=== PATIENT | male | born 1975 | race Caucasian/White ===

== ENCOUNTER 2018-12-15 23:46 | Inpatient (IN) | payer SELFPAY ==
[2018-12-16] MEDS ORDERED: Ondansetron ODT 4 MG TAB PO PRN (03:47)
[2018-12-16] MEDS: Ondansetron PF 4 MG/2 ML Vial IVP PRN ×2 (04:19→17:19)
[2018-12-16] MEDS: Acetaminophen 325 MG TAB PO PRN (04:19)
[2018-12-16] MEDS: Sodium Chloride 0.9% 1,000 ML IV SCH ×3 (04:20→20:49)
--- NOTE | 2018-12-16 04:31 | HP ---
PRIMARY CARE PHYSICIAN: Dr. Velez. CHIEF COMPLAINT: Nausea and vomiting all day long. HISTORY OF PRESENT ILLNESS: Mr. Hutchinson is a 43-year-old gentleman who has a history of anxiety and depression, who says that today he started vomiting pretty much all day long and cannot keep anything down. He says that now he has noticed that he is even throwing up some blood and having some bloody diarrhea as well. He says a few years ago he had a similar episode in which he had poisoning by E coli. He began to become weak as well and he came to the ER where he was found to be in acute renal failure and also was noted to have an elevated white blood cell count and is being admitted for further evaluation. The patient denies any fevers, but has had some chills off and on. He does not have any sick contacts and says that he did eat a medium rare steak yesterday and then also had some red hot dogs what he calls red skin hot dogs, which had been in the freezer, had been cooked, then refrozen, and then eaten again and he also took some Motrin gelcaps a total of 800 mg a few days ago. REVIEW OF SYSTEMS: CONSTITUTIONAL: He has had subjective chills, but no fevers. No night sweats. No weight loss. HEENT: No headaches, no dizziness, no visual changes, no sore throat or rhinorrhea. NECK: No neck pain. No adenopathy. PULMONARY: No hemoptysis. No cough. No wheezing. CARDIOVASCULAR: He denies any chest pain. No shortness of breath. No PND. No orthopnea. GASTROINTESTINAL: As the History of Present Illness with the addition of some cramping or twisting abdominal pain which is fairly constant. GENITOURINARY: No urinary frequency or hematuria. No hesitancy. NEUROLOGIC: No focal weakness or numbness. No seizures. PSYCHIATRIC: He does have some depression. He denies any suicidal ideation. He denies any homicidal ideation. SKIN AND INTEGUMENT: No skin changes. No rash. PAST MEDICAL HISTORY: Again, anxiety and depression as well as hypogonadism. PAST SURGICAL HISTORY: He had surgery on the right 5th digit. ALLERGIES: NO KNOWN DRUG ALLERGIES. SOCIAL HISTORY: He is , has 2 children. He is a nonsmoker. He occasionally drinks about 4 beers every few days. FAMILY HISTORY: Aunt had depression. MEDICATIONS: Include; 1. Testosterone every 10 days as well as Effexor and Wellbutrin. Effexor is 150 mg daily. 2. He also takes Adderall 60 mg in the morning. PHYSICAL EXAMINATION: GENERAL: He is alert and oriented. He appears to be in no acute distress. He is well developed and well nourished. VITAL SIGNS: Blood pressure was 102/57, heart rate 64, respiratory rate of 20, and temperature is 97.9. HEENT: Pupils are equal, round, and reactive to light. Extraocular muscles are intact. His sclerae are anicteric. Throat; no erythema, no exudates. NECK: No adenopathy, no bruits. LUNGS: Clear to auscultation. There is no wheezing, no rales, no rhonchi. CARDIOVASCULAR: He has a normal S1, S2. There is no S3 or S4. No murmurs, clicks, or rubs. ABDOMEN: Obese. It is slightly distended, tympanic to percussion. There is some diffuse tenderness. There is no rebound, no guarding, no organomegaly. EXTREMITIES: There is no calf tenderness, no joint effusions. NEUROLOGIC: Cranial nerves 2 through 12 are intact. SKIN AND INTEGUMENT: There is no skin changes, no rash. LABORATORY RESULTS: His white blood cell count 16, hemoglobin 18.1, hematocrit is 54.4, and platelet count is 291. Sodium 141, potassium 4.6, chloride is 104, CO2 is not reported, BUN is 38, creatinine 3.84, glucose is 147, calcium was elevated at 11.9. CT scan of the abdomen and pelvis is currently pending. ASSESSMENT: This is a pleasant 43-year-old gentleman who is being admitted with intractable nausea and vomiting and now has developed some bright red blood per rectum as well. He also has acute kidney injury. 1. For the acute kidney injury, I suspect this is volume mediated, likely due to prerenal azotemia. He will be placed on IV fluids and we will monitor his trend, likely get a renal ultrasound as well. 2. Bloody diarrhea. We will need to check stool studies with the addition of the Escherichia coli toxigenic strains and Shigella. 3. Leukocytosis and vomiting. We will place him on Rocephin and Flagyl. 4. Depression. We will continue his home medications for depression. We will hold off on any deep venous thrombosis prophylaxis given the active bleeding. Job ID: [id number]
[2018-12-16] MEDS ORDERED: cefTRIAXone\\ROCEPHIN 1 GM in Sodium Chloride 0.9% 100 ML IVPB SCH (05:00)
[2018-12-16 05:11] VITALS: BMI 27.3
[2018-12-16] MEDS: metroNIDAZOLE 500 MG in Premix Bag 1 BAG IVPB SCH ×4 (05:36→23:48)
--- NOTE | 2018-12-16 08:40 | CT ---
PRELIMINARY REPORT/[facility]/EMERGENCY AFTER HOURS PROCEDURE: EXAM: CT Abdomen and Pelvis Without Contrast EXAM DATE/TIME: 12/16/2018 1:34 AM CLINICAL HISTORY: 43 years old, male; renal failure. Initially presented to ED for n/v/d after eating sausages earlier today. Went to ED and diagnosed with acute renal failure, unlikely related to sudden onset of n/vd. P T reports he felt like he needed to have bm upon arrival to ED, was in restroom but about 20 minutes, unable to have bm but reports rectal bleeding. Reports abdominal pain, cramping and dizziness. Pt's creatinine was >3 today, previous in August was 1 TECHNIQUE: Imaging protocol: Computed tomography of the abdomen and pelvis without contrast. COMPARISON: No relevant prior studies available. FINDINGS: Lungs: Evidence of old granulomatous disease. No acute infiltrate in either lung base. Liver: Normal. No mass. Gallbladder and bile ducts: Normal. No calcified stones. No ductal dilation. Pancreas: Normal. No ductal dilation. Spleen: Normal. No splenomegaly. Adrenals: Normal. No mass. Kidneys and ureters: 12 mm posteromedial left renal cortical cyst. Small cyst posteromedial right christiana al cortex. No hydronephrosis. Stomach and bowel: The colon is decompressed. The left colon likely exhibits wall thickening with min imal pericolonic stranding in the descending colon region - these findings indicate a colitis. Mild wall thickening of the terminal ileum and distal ileum indicating an associated enteritis. A few scat tered colon diverticuli without evidence of diverticulitis. Appendix: Normal appendix. Intraperitoneal space: Normal. No free air. No significant fluid collection. Vasculature: Coronary artery calcification. Normal-variant duplicated IVC. Lymph nodes: Unremarkable. No enlarged lymph nodes. Bladder: Unremarkable as visualized. Reproductive: Unremarkable as visualized. Bones/joints: Spinal degenerative changes. Soft tissues: Unremarkable. IMPRESSION: 1. The colon is decompressed. The left colon likely exhibits wall thickening with minimal pericolonic stranding in the descending colon region - these findings indicate a colitis. 2. Mild wall thickening of the terminal ileum and distal ileum indicating an associated enteritis. 3. A few scattered colon diverticuli without evidence of diverticulitis. 4. No hydronephrosis. Thank you for allowing us to participate in the care of your patient. Dictated and Authenticated by: Jonathan Loving MD 12/16/2018 1:57 AM Central Time ([place] & [place]) FINAL REPORT ABDOMEN AND PELVIC CT SCAN WITHOUT IV CONTRAST: EMERGENT AFTER HOURS EXAM TIME: 0135 hours. DATE: 12/16/2018. A 1.2 cm left renal cortical cyst and small cyst in the right renal cortex. There is some subtle wal l thickening of the left colon with some minimal pericolonic fat stranding, but the colon is decompre ssed making this evaluation difficult. There are a few scattered colonic diverticulosis changes but without acute diverticulitis. Minimal potential wall thickening in the distal ileum. Possible mild enterocolitis. No other significant acute process. POS: EMIL
[2018-12-16] MEDS ORDERED: Dextroamphetamine/Amphetamine [Adderall 20 Mg Tablet] PO SCH (09:00)
[2018-12-16] MEDS: Venlafaxine HCl XR 150 MG CAP PO SCH (10:00)
[2018-12-16] MEDS: Bupropion 150 MG XL TAB PO SCH (10:00)
[2018-12-16] MEDS ORDERED: Promethazine HCl 25 MG/ML VIAL IM/IV PRN (11:15)
--- NOTE | 2018-12-16 11:17 | PDOC.HOSPP ---
- Subjective Encounter Date: 12/16/18 Subjective: continues to have diarrhea, nausea and vomiting. - Objective Vital Signs & Weight: Vital Signs (12 hours) Temp Pulse Resp BP Pulse Ox 12/16/18 03:50 97.6 F 59 L 18 117/69 100 Weight Weight 190 lb 2 oz Hospitalist ROS - Medication Medications: Active Medications Generic Name Dose Route Start Last Admin Trade Name Freq PRN Reason Stop Dose Admin Acetaminophen 650 mg 12/16/18 03:47 12/16/18 04:19 Tylenol PO 650 mg Q4H PRN Administration Headache/Fever/Mild Pain (1-3) Bupropion HCl 150 mg 12/16/18 09:00 12/16/18 10:00 Wellbutrin Xl PO 150 mg QAM BRIAN Administration Metronidazole 500 mg/ Device 100 mls @ 100 mls/hr 12/16/18 06:00 12/16/18 05: 36 IVPB 100 mls Q6HR BRIAN Administration Sodium Chloride 1,000 mls @ 150 mls/hr 12/16/18 03:47 12/16/18 10:16 Normal Saline 0.9% IV 1,000 mls .Q6H40M BRIAN Administration Ondansetron HCl 4 mg 12/16/18 03:47 12/16/18 04:19 Zofran IVP 4 mg Q6H PRN Administration Nausea/Vomiting Testosterone Cypionate 200 mg 12/16/18 07:00 12/16/18 10:16 Depo-Testosterone IM Not Given Q7D BRIAN Venlafaxine HCl 150 mg 12/16/18 09:00 12/16/18 10:00 Effexor Xr PO 150 mg QAM BRIAN Administration - Exam General Appearance: NAD, awake alert Eye: PERRL, anicteric sclera ENT: normocephalic atraumatic, no oropharyngeal lesions, moist mucosa Neck: supple, symmetric, no JVD, no thyromegaly, no lymphadenopathy, no carotid bruit Heart: RRR, no murmur, no gallops, no rubs, normal peripheral pulses Respiratory: CTAB, no wheezes, no rales, no ronchi, normal chest expansion, no tachypnea, normal percussion Gastrointestinal: soft, non-tender, non-distended, normal bowel sounds, no palpable masses, no hepatomegaly, no splenomegaly, no bruit Extremities: no cyanosis, no clubbing, no edema Skin: normal turgor, no lesions, no rashes Neurological: CN's grossly intact, normal sensation to touch, no weakness, no focal deficits, no new deficit Musculoskeletal: normal tone, normal strength, no muscle wasting Psychiatric: normal affect, normal behavior, A&O x 3 Hosp A/P (1) Gastroenteritis Code(s): K52.9 - NONINFECTIVE GASTROENTERITIS AND COLITIS, UNSPECIFIED Status : Acute (2) Nausea & vomiting Code(s): R11.2 - NAUSEA WITH VOMITING, UNSPECIFIED Status: Acute (3) TYRESE (acute kidney injury) Code(s): N17.9 - ACUTE KIDNEY FAILURE, UNSPECIFIED Status: Acute (4) Depression Code(s): F32.9 - MAJOR DEPRESSIVE DISORDER, SINGLE EPISODE, UNSPECIFIED Status : Chronic - Plan plan to change Rocephin to Cipro and continue with Flagyl, also Morphine for abdominal pain, add phenergan for nausea. His labs are still pending, I will follow up on his creatinine but will continue aggressive fluid hydration. will keep on clix will continue depression meds.
[2018-12-16] MEDS: Dicyclomine 10 MG CAP PO PRN ×2 (12:51→20:48)
[2018-12-16] MEDS: Morphine 2 MG/ML SYRINGE SLOW IVP PRN ×3 (13:13→23:44)
[2018-12-16 13:36] LABS: #Lymphocytes 1.5 thou/uL (1.20-3.40); #Monocytes 1.2 thou/uL (0.11-0.59); #Neutrophils 11.4 thou/uL (1.40-6.50); %Basophils 0.3 % (0.0-1.0); %Eosinophils 0.3 % (0.0-10.0); %Lymphocytes 10.4 % (21.0-51.0); %Monocytes 8.8 % (0.0-10.0); %Neutrophils 80.3 % (42.0-75.0); Hemoglobin 15.8 g/dL (14.0-18.0); Mean Corpuscular HGB CONC 34.1 g/dL (32.0-36.0); Mean Corpuscular Hemoglobin 31.7 pg (27.0-31.0); Mean Corpuscular Volume 93.1 fL (78.0-98.0); Platelet Count 219 thou/uL (130-400); RBC Distribution Width 13.4 % (11.5-14.5); Red Blood Cell (RBC) Count 4.98 mill/uL (4.70-6.10); White Blood Cell (WBC) Count 14.1 thou/uL (4.8-10.8)
[2018-12-16 13:58] LABS: Anion Gap 11 mmol/L (10-20); BUN (Urea Nitrogen) 31 mg/dL (8.9-20.6); Calc. Creatinine Clearance 69 mL/min (70-130); Calcium 8.9 mg/dL (7.8-10.44); Carbon Dioxide 22 mmol/L (22-29); Chloride 106 mmol/L (98-107); Estimated GFR-MDRD 45; Glucose 123 mg/dL (70-105); Potassium 4.2 mmol/L (3.5-5.1); Sodium 135 mmol/L (136-145)
[2018-12-17 05:06] LABS: #Basophils 0.1 thou/uL (0.0-0.2); #Eosinphils 0.1 thou/uL (0.0-0.7); #Lymphocytes 2.1 thou/uL (1.20-3.40); #Neutrophils 9.6 thou/uL (1.40-6.50); %Basophils 0.4 % (0.0-1.0); %Eosinophils 0.8 % (0.0-10.0); %Lymphocytes 16.4 % (21.0-51.0); %Monocytes 8.1 % (0.0-10.0); %Neutrophils 74.4 % (42.0-75.0); Hemoglobin 15.2 g/dL (14.0-18.0); Mean Corpuscular HGB CONC 34.7 g/dL (32.0-36.0); Mean Corpuscular Hemoglobin 32.3 pg (27.0-31.0); Mean Corpuscular Volume 93.2 fL (78.0-98.0); Mean Platelet Volume 6.9 fL (7.4-10.4); Platelet Count 195 thou/uL (130-400); RBC Distribution Width 13.1 % (11.5-14.5); White Blood Cell (WBC) Count 12.9 thou/uL (4.8-10.8)
[2018-12-17 05:29] LABS: Anion Gap 9 mmol/L (10-20); BUN (Urea Nitrogen) 16 mg/dL (8.9-20.6); Calc. Creatinine Clearance 125 mL/min (70-130); Calcium 8.6 mg/dL (7.8-10.44); Carbon Dioxide 23 mmol/L (22-29); Chloride 108 mmol/L (98-107); Estimated GFR-MDRD 89; Glucose 87 mg/dL (70-105); Potassium 4.1 mmol/L (3.5-5.1); Sodium 136 mmol/L (136-145)
[2018-12-17] MEDS: metroNIDAZOLE 500 MG in Premix Bag 1 BAG IVPB SCH ×3 (05:31→17:43)
[2018-12-17] MEDS: Sodium Chloride 0.9% 1,000 ML IV SCH ×3 (05:31→16:06)
[2018-12-17] MEDS: Bupropion 150 MG XL TAB PO SCH (09:02)
[2018-12-17] MEDS: Venlafaxine HCl XR 150 MG CAP PO SCH (09:02)
[2018-12-17] MEDS: Dicyclomine 10 MG CAP PO PRN ×2 (09:04→17:46)
[2018-12-17] MEDS: Morphine 2 MG/ML SYRINGE SLOW IVP PRN ×3 (09:07→17:42)
[2018-12-17] MEDS: Acetaminophen 325 MG TAB PO PRN ×2 (11:28→17:42)
--- NOTE | 2018-12-17 16:46 | PDOC.HOSPP ---
- Subjective Encounter Date: 12/17/18 Subjective: feels better today, still having diarrhea but no vomiting, stool is somewhat more formed. - Objective Vital Signs & Weight: Vital Signs (12 hours) Temp Pulse Resp BP Pulse Ox 12/17/18 15:29 98.1 F 60 18 134/77 96 12/17/18 11:34 98.1 F 68 14 156/88 H 97 12/17/18 07:58 98.5 F 64 16 160/84 H 94 L 12/17/18 05:00 98.5 F 78 20 156/72 H 95 Weight Admit Weight 190 lb Weight 190 lb 2 oz I&O: 12/16/18 12/17/18 12/18/18 06:59 06:59 06:59 Intake Total 3640 Output Total 550 Balance 3090 Result Diagrams: 12/17/18 04:34 12/17/18 04:34 Hospitalist ROS - Review of Systems Constitutional: reports: fever, chills, sweats, weakness, malaise, other Eyes: reports: pain, vision change, conjunctivae inflammation, eyelid inflammation, redness, other ENT: reports: ear pain, ear discharge, nose pain, nose discharge, nose congestion, mouth pain, mouth swelling, throat pain, throat swelling, other Respiratory: reports: cough, dry, shortness of breath, hemoptysis, SOB with excertion, pleuritic pain, sputum, wheezing, other Cardiovascular: reports: chest pain, palpitations, orthopnea, paroxysmal noc. dyspnea, edema, light headedness, other Gastrointestinal: reports: nausea, vomitting, abdominal pain, diarrhea, constipation, melena, hematochezia, other Genitourinary: reports: dysuria, frequency, incontinence, hematuria, retention, other Musculoskeletal: reports: neck pain, shoulder pain, arm pain, back pain, hand pain, leg pain, foot pain, other Skin: reports: rash, lesions, kenia, bruising, other Neurological: reports: weakness, numbness, incoordination, change in speech, confusion, seizures, other - Medication Medications: Active Medications Generic Name Dose Route Start Last Admin Trade Name Freq PRN Reason Stop Dose Admin Acetaminophen 650 mg 12/16/18 03:47 12/17/18 11:28 Tylenol PO 650 mg Q4H PRN Administration Headache/Fever/Mild Pain (1-3) Bupropion HCl 150 mg 12/16/18 09:00 12/17/18 09:02 Wellbutrin Xl PO 150 mg QAM BRIAN Administration Dicyclomine HCl 10 mg 12/16/18 06:49 12/17/18 09:04 Bentyl PO 10 mg QID PRN Administration Abdominal Distention Metronidazole 500 mg/ Device 100 mls @ 100 mls/hr 12/16/18 06:00 12/17/18 11: 24 IVPB 100 mls Q6HR BRIAN Administration Sodium Chloride 1,000 mls @ 150 mls/hr 12/16/18 03:47 12/17/18 16:06 Normal Saline 0.9% IV 1,000 mls .Q6H40M BRIAN Administration Ciprofloxacin/Dextrose 400 mg/ 200 mls @ 200 mls/hr 12/16/18 13:00 12/17/18 12:29 Device IVPB 200 mls 0100,1300 BRIAN Administration Morphine Sulfate 2 mg 12/16/18 11:14 12/17/18 13:39 Morphine SLOW IVP 2 mg Q4H PRN Administration Moderate to Severe Pain (6-10) Ondansetron HCl 4 mg 12/16/18 03:47 12/16/18 17:19 Zofran IVP 4 mg Q6H PRN Administration Nausea/Vomiting Venlafaxine HCl 150 mg 12/16/18 09:00 12/17/18 09:02 Effexor Xr PO 150 mg QAM BRIAN Administration Hosp A/P (1) Gastroenteritis Code(s): K52.9 - NONINFECTIVE GASTROENTERITIS AND COLITIS, UNSPECIFIED Status : Acute (2) Nausea & vomiting Code(s): R11.2 - NAUSEA WITH VOMITING, UNSPECIFIED Status: Acute (3) TYRESE (acute kidney injury) Code(s): N17.9 - ACUTE KIDNEY FAILURE, UNSPECIFIED Status: Acute (4) Depression Code(s): F32.9 - MAJOR DEPRESSIVE DISORDER, SINGLE EPISODE, UNSPECIFIED Status : Chronic - Plan plan to continue with Cipro and continue with Flagyl, also Morphine for abdominal pain, phenergan for nausea. His labs show much improvement will continue aggressive fluid hydration. will upgrade to full liquid will continue depression meds.
[2018-12-18] MEDS: Sodium Chloride 0.9% 1,000 ML IV SCH ×5 (00:44→21:30)
[2018-12-18] MEDS: metroNIDAZOLE 500 MG in Premix Bag 1 BAG IVPB SCH ×4 (00:45→17:31)
[2018-12-18] MEDS: Dicyclomine 10 MG CAP PO PRN ×3 (04:14→18:08)
[2018-12-18] MEDS: Morphine 2 MG/ML SYRINGE SLOW IVP PRN ×3 (04:16→17:26)
[2018-12-18 05:30] LABS: #Basophils 0.1 thou/uL (0.0-0.2); #Eosinphils 0.2 thou/uL (0.0-0.7); #Lymphocytes 2.3 thou/uL (1.20-3.40); #Monocytes 0.9 thou/uL (0.11-0.59); #Neutrophils 7.2 thou/uL (1.40-6.50); %Basophils 0.9 % (0.0-1.0); %Eosinophils 1.5 % (0.0-10.0); %Lymphocytes 21.4 % (21.0-51.0); %Monocytes 8.6 % (0.0-10.0); %Neutrophils 67.6 % (42.0-75.0); Hemoglobin 14.1 g/dL (14.0-18.0); Mean Corpuscular HGB CONC 34.2 g/dL (32.0-36.0); Mean Corpuscular Hemoglobin 32.1 pg (27.0-31.0); Mean Corpuscular Volume 93.8 fL (78.0-98.0); Mean Platelet Volume 6.9 fL (7.4-10.4); Platelet Count 188 thou/uL (130-400); RBC Distribution Width 13.1 % (11.5-14.5); Red Blood Cell (RBC) Count 4.38 mill/uL (4.70-6.10); White Blood Cell (WBC) Count 10.6 thou/uL (4.8-10.8)
[2018-12-18 05:47] LABS: Anion Gap 9 mmol/L (10-20); BUN (Urea Nitrogen) 9 mg/dL (8.9-20.6); Calc. Creatinine Clearance 129 mL/min (70-130); Calcium 8.2 mg/dL (7.8-10.44); Carbon Dioxide 27 mmol/L (22-29); Chloride 104 mmol/L (98-107); Estimated GFR-MDRD Greater than 90; Glucose 81 mg/dL (70-105); Sodium 136 mmol/L (136-145)
[2018-12-18] MEDS: Lisinopril 20 MG TAB PO SCH (08:14)
[2018-12-18] MEDS: Bupropion 150 MG XL TAB PO SCH (08:14)
[2018-12-18] MEDS: Venlafaxine HCl XR 150 MG CAP PO SCH (08:15)
[2018-12-18] MEDS: Acetaminophen 325 MG TAB PO PRN ×2 (12:39→17:31)
[2018-12-18] MEDS ORDERED: Loperamide HCl 2 MG CAP PO SCH (19:00)
--- NOTE | 2018-12-18 19:01 | PDOC.HOSPP ---
- Subjective Encounter Date: 12/18/18 Subjective: still having diarrhea but less frequently and it s non-bloody. - Objective Vital Signs & Weight: Vital Signs (12 hours) Temp Pulse Resp BP BP Pulse Ox 12/18/18 15:07 98.0 F 58 L 16 124/69 95 12/18/18 11:48 98.3 F 61 16 144/73 H 97 12/18/18 08:22 97 F L 59 L 16 158/83 H 95 12/18/18 08:14 143/79 H Weight Admit Weight 190 lb Weight 190 lb 2 oz I&O: 12/17/18 12/18/18 12/19/18 06:59 06:59 06:59 Intake Total 3640 3720 3600 Output Total 550 500 Balance 3090 3220 3600 Result Diagrams: 12/18/18 04:47 12/18/18 04:47 Hospitalist ROS - Medication Medications: Active Medications Generic Name Dose Route Start Last Admin Trade Name Freq PRN Reason Stop Dose Admin Acetaminophen 650 mg 12/16/18 03:47 12/18/18 17:31 Tylenol PO 650 mg Q4H PRN Administration Headache/Fever/Mild Pain (1-3) Bupropion HCl 150 mg 12/16/18 09:00 12/18/18 08:14 Wellbutrin Xl PO 150 mg QAM BRIAN Administration Dicyclomine HCl 10 mg 12/16/18 06:49 12/18/18 18:08 Bentyl PO 10 mg QID PRN Administration Abdominal Distention Metronidazole 500 mg/ Device 100 mls @ 100 mls/hr 12/16/18 06:00 12/18/18 17: 31 IVPB 100 mls Q6HR BRIAN Administration Ciprofloxacin/Dextrose 400 mg/ 200 mls @ 200 mls/hr 12/16/18 13:00 12/18/18 12:35 Device IVPB 200 mls 0100,1300 BRIAN Administration Lisinopril 20 mg 12/18/18 09:00 12/18/18 08:14 Zestril PO 20 mg DAILY BRIAN Administration Morphine Sulfate 2 mg 12/16/18 11:14 12/18/18 17:26 Morphine SLOW IVP 2 mg Q4H PRN Administration Moderate to Severe Pain (6-10) Ondansetron HCl 4 mg 12/16/18 03:47 12/16/18 17:19 Zofran IVP 4 mg Q6H PRN Administration Nausea/Vomiting Venlafaxine HCl 150 mg 12/16/18 09:00 12/18/18 08:15 Effexor Xr PO 150 mg QAM BRIAN Administration - Exam General Appearance: NAD, awake alert Eye: PERRL, anicteric sclera ENT: normocephalic atraumatic, no oropharyngeal lesions, moist mucosa Neck: supple, symmetric, no JVD, no thyromegaly, no lymphadenopathy, no carotid bruit Heart: RRR, no murmur, no gallops, no rubs, normal peripheral pulses Respiratory: CTAB, no wheezes, no rales, no ronchi, normal chest expansion, no tachypnea, normal percussion Gastrointestinal: soft, non-tender, non-distended, normal bowel sounds, no palpable masses, no hepatomegaly, no splenomegaly, no bruit Extremities: no cyanosis, no clubbing, no edema Skin: normal turgor, no lesions, no rashes Neurological: CN's grossly intact, normal sensation to touch, no weakness, no focal deficits, no new deficit Musculoskeletal: normal tone, normal strength, no muscle wasting Hosp A/P (1) Gastroenteritis Code(s): K52.9 - NONINFECTIVE GASTROENTERITIS AND COLITIS, UNSPECIFIED Status : Acute (2) Nausea & vomiting Code(s): R11.2 - NAUSEA WITH VOMITING, UNSPECIFIED Status: Acute (3) TYRESE (acute kidney injury) Code(s): N17.9 - ACUTE KIDNEY FAILURE, UNSPECIFIED Status: Acute (4) Depression Code(s): F32.9 - MAJOR DEPRESSIVE DISORDER, SINGLE EPISODE, UNSPECIFIED Status : Chronic - Plan plan to continue with Cipro and continue with Flagyl, also Morphine for abdominal pain, phenergan for nausea I will give one time of imodium since there is no blood in the stools and his WBC normalized. His labs show much improvement will drop fluid hydration to 100 cc. will keep full liquid for now since he is still cramping with food. will continue depression meds.
[2018-12-19] MEDS: metroNIDAZOLE 500 MG in Premix Bag 1 BAG IVPB SCH ×5 (00:15→23:50)
[2018-12-19 05:06] LABS: #Basophils 0.1 thou/uL (0.0-0.2); #Eosinphils 0.1 thou/uL (0.0-0.7); #Lymphocytes 2.2 thou/uL (1.20-3.40); #Monocytes 0.7 thou/uL (0.11-0.59); #Neutrophils 5.4 thou/uL (1.40-6.50); %Basophils 1.1 % (0.0-1.0); %Eosinophils 1.6 % (0.0-10.0); %Lymphocytes 25.4 % (21.0-51.0); %Monocytes 8.5 % (0.0-10.0); %Neutrophils 63.4 % (42.0-75.0); Hemoglobin 14.3 g/dL (14.0-18.0); Mean Corpuscular HGB CONC 34.7 g/dL (32.0-36.0); Mean Corpuscular Hemoglobin 32.2 pg (27.0-31.0); Mean Corpuscular Volume 92.7 fL (78.0-98.0); Mean Platelet Volume 6.9 fL (7.4-10.4); Platelet Count 187 thou/uL (130-400); RBC Distribution Width 12.7 % (11.5-14.5); Red Blood Cell (RBC) Count 4.43 mill/uL (4.70-6.10); White Blood Cell (WBC) Count 8.5 thou/uL (4.8-10.8)
[2018-12-19 05:25] LABS: Anion Gap 9 mmol/L (10-20); BUN (Urea Nitrogen) 10 mg/dL (8.9-20.6); Calc. Creatinine Clearance 139 mL/min (70-130); Calcium 8.7 mg/dL (7.8-10.44); Carbon Dioxide 26 mmol/L (22-29); Chloride 105 mmol/L (98-107); Estimated GFR-MDRD Greater than 90; Glucose 85 mg/dL (70-105); Sodium 136 mmol/L (136-145)
[2018-12-19] MEDS: Sodium Chloride 0.9% 1,000 ML IV SCH ×2 (05:25→13:15)
[2018-12-19] MEDS: Lisinopril 20 MG TAB PO SCH (08:38)
[2018-12-19] MEDS: Acetaminophen 325 MG TAB PO PRN ×2 (08:38→20:20)
[2018-12-19] MEDS: Bupropion 150 MG XL TAB PO SCH (08:38)
[2018-12-19] MEDS: Venlafaxine HCl XR 150 MG CAP PO SCH (08:38)
[2018-12-19] MEDS: Dicyclomine 10 MG CAP PO PRN ×2 (09:00→20:20)
[2018-12-19] MEDS: Morphine 2 MG/ML SYRINGE SLOW IVP PRN (09:51)
--- NOTE | 2018-12-19 14:44 | PDOC.HOSPP ---
- Subjective Encounter Date: 12/19/18 Subjective: still have some cramping after he eats, but only had 2 episodes of diarrhea. - Objective Vital Signs & Weight: Vital Signs (12 hours) Temp Pulse Resp BP BP Pulse Ox 12/19/18 11:48 98.1 F 54 L 12 120/76 94 L 12/19/18 11:00 98.1 F 54 L 12 130/76 94 L 12/19/18 08:38 143/79 H 12/19/18 08:00 94 L 12/19/18 07:26 98.2 F 56 L 18 125/67 94 L 12/19/18 07:00 18 12/19/18 03:25 98.1 F 64 16 166/80 H 98 Weight Admit Weight 190 lb Weight 190 lb 2 oz I&O: 12/18/18 12/19/18 12/20/18 06:59 06:59 06:59 Intake Total 3720 4800 Output Total 500 Balance 3220 4800 Result Diagrams: 12/19/18 04:24 12/19/18 04:24 Hospitalist ROS - Medication Medications: Active Medications Generic Name Dose Route Start Last Admin Trade Name Freq PRN Reason Stop Dose Admin Acetaminophen 650 mg 12/16/18 03:47 12/19/18 08:38 Tylenol PO 650 mg Q4H PRN Administration Headache/Fever/Mild Pain (1-3) Bupropion HCl 150 mg 12/16/18 09:00 12/19/18 08:38 Wellbutrin Xl PO 150 mg QAM BRIAN Administration Dicyclomine HCl 10 mg 12/16/18 06:49 12/19/18 09:00 Bentyl PO 10 mg QID PRN Administration Abdominal Distention Metronidazole 500 mg/ Device 100 mls @ 100 mls/hr 12/16/18 06:00 12/19/18 13: 19 IVPB 100 mls Q6HR BRIAN Administration Ciprofloxacin/Dextrose 400 mg/ 200 mls @ 200 mls/hr 12/16/18 13:00 12/19/18 14:40 Device IVPB 200 mls 0100,1300 BRIAN Administration Sodium Chloride 1,000 mls @ 100 mls/hr 12/18/18 18:46 12/19/18 13:15 Normal Saline 0.9% IV 1,000 mls .Q10H BRIAN Administration Lisinopril 20 mg 12/18/18 09:00 12/19/18 08:38 Zestril PO 20 mg DAILY BRIAN Administration Morphine Sulfate 2 mg 12/16/18 11:14 12/19/18 09:51 Morphine SLOW IVP 2 mg Q4H PRN Administration Moderate to Severe Pain (6-10) Ondansetron HCl 4 mg 12/16/18 03:47 12/16/18 17:19 Zofran IVP 4 mg Q6H PRN Administration Nausea/Vomiting Testosterone Cypionate 300 mg 12/18/18 20:00 12/18/18 19:51 Depo-Testosterone IM 300 mg We@2000 BRIAN Administration Venlafaxine HCl 150 mg 12/16/18 09:00 12/19/18 08:38 Effexor Xr PO 150 mg QAM BRIAN Administration - Exam General Appearance: NAD, awake alert Eye: PERRL, anicteric sclera ENT: normocephalic atraumatic, no oropharyngeal lesions, moist mucosa Neck: supple, symmetric, no JVD, no thyromegaly, no lymphadenopathy, no carotid bruit Heart: RRR, no murmur, no gallops, no rubs, normal peripheral pulses Respiratory: CTAB, no wheezes, no rales, no ronchi, normal chest expansion, no tachypnea, normal percussion Gastrointestinal: soft, non-tender, non-distended, normal bowel sounds, no palpable masses, no hepatomegaly, no splenomegaly, no bruit Extremities: no cyanosis, no clubbing, no edema Skin: normal turgor, no lesions, no rashes Neurological: CN's grossly intact, normal sensation to touch, no weakness, no focal deficits, no new deficit Musculoskeletal: normal tone, normal strength, no muscle wasting Psychiatric: normal affect, normal behavior, A&O x 3 Hosp A/P (1) Gastroenteritis Code(s): K52.9 - NONINFECTIVE GASTROENTERITIS AND COLITIS, UNSPECIFIED Status : Acute (2) Nausea & vomiting Code(s): R11.2 - NAUSEA WITH VOMITING, UNSPECIFIED Status: Acute (3) TYRESE (acute kidney injury) Code(s): N17.9 - ACUTE KIDNEY FAILURE, UNSPECIFIED Status: Acute (4) Depression Code(s): F32.9 - MAJOR DEPRESSIVE DISORDER, SINGLE EPISODE, UNSPECIFIED Status : Chronic - Plan plan to continue with Cipro and continue with Flagyl, also Morphine for abdominal pain, phenergan for nausea ---I will give one more dose of imodium since there is no blood in the stools and his WBC normalized. His labs show much improvement ---will stop drawing labs on him. will upgrade to GI soft. will continue depression meds.
[2018-12-19] MEDS ORDERED: Loperamide HCl 2 MG CAP PO SCH (15:00)
[2018-12-19] MEDS ORDERED: Loperamide HCl 2 MG CAP PO PRN (18:33)
[2018-12-20] MEDS: metroNIDAZOLE 500 MG in Premix Bag 1 BAG IVPB SCH ×4 (06:48→23:52)
[2018-12-20] MEDS: Sodium Chloride 0.9% 1,000 ML IV SCH ×2 (06:50→17:12)
[2018-12-20] MEDS: Venlafaxine HCl XR 150 MG CAP PO SCH (09:12)
[2018-12-20] MEDS: Bupropion 150 MG XL TAB PO SCH (09:15)
[2018-12-20] MEDS: Lisinopril 20 MG TAB PO SCH (09:16)
--- NOTE | 2018-12-20 15:37 | ULT ---
EXAM: Right upper extremity venous Doppler PROVIDED CLINICAL HISTORY: Right upper extremity edema COMPARISON: None FINDINGS: Grayscale and color Doppler sonography with spectral analysis was performed of the right internal jug ular, subclavian, axillary, basilic, cephalic, radial and ulnar veins. There is thrombosis of a superficial venous structure within the antecubital fossa, contiguous with bronchus formation within the distal right basilic vein. These are occlusive in nature. The remainder of the interrogated venous structures of the right upper extremity demonstrate a normal sonographic appearance. IMPRESSION: Occlusive thrombus formation within the superficial venous system of the right upper extremity as zay cribed.
[2018-12-20] MEDS: Morphine 2 MG/ML SYRINGE SLOW IVP PRN (16:49)
--- NOTE | 2018-12-20 17:46 | PDOC.HOSPP ---
- Subjective Encounter Date: 12/20/18 Subjective: He developed and induration in his right anti-cubital area where his IV was, he is very concerned about it and did not feel well all day. - Objective Vital Signs & Weight: Vital Signs (12 hours) Temp Pulse Resp BP BP Pulse Ox 12/20/18 12:10 98.5 F 69 16 131/74 97 12/20/18 09:16 130/70 12/20/18 08:41 98.5 F 62 16 130/70 95 12/20/18 08:00 95 Weight Admit Weight 190 lb Weight 190 lb 2 oz I&O: 12/19/18 12/20/18 12/21/18 06:59 06:59 06:59 Intake Total 4800 1700 Balance 4800 1700 Result Diagrams: 12/19/18 04:24 12/19/18 04:24 Hospitalist ROS - Medication Medications: Active Medications Generic Name Dose Route Start Last Admin Trade Name Freq PRN Reason Stop Dose Admin Acetaminophen 650 mg 12/16/18 03:47 12/19/18 20:20 Tylenol PO 650 mg Q4H PRN Administration Headache/Fever/Mild Pain (1-3) Bupropion HCl 150 mg 12/16/18 09:00 12/20/18 09:15 Wellbutrin Xl PO 150 mg QAM BRIAN Administration Dicyclomine HCl 10 mg 12/16/18 06:49 12/19/18 20:20 Bentyl PO 10 mg QID PRN Administration Abdominal Distention Metronidazole 500 mg/ Device 100 mls @ 100 mls/hr 12/16/18 06:00 12/20/18 12: 36 IVPB 100 mls Q6HR BRIAN Administration Ciprofloxacin/Dextrose 400 mg/ 200 mls @ 200 mls/hr 12/16/18 13:00 12/20/18 16:45 Device IVPB 200 mls 0100,1300 BRIAN Administration Lisinopril 20 mg 12/18/18 09:00 12/20/18 09:16 Zestril PO 20 mg DAILY BRIAN Administration Morphine Sulfate 2 mg 12/16/18 11:14 12/20/18 16:49 Morphine SLOW IVP 2 mg Q4H PRN Administration Moderate to Severe Pain (6-10) Ondansetron HCl 4 mg 12/16/18 03:47 12/19/18 20:20 Zofran Odt PO 4 mg Q6H PRN Administration Nausea/Vomiting Ondansetron HCl 4 mg 12/16/18 03:47 12/16/18 17:19 Zofran IVP 4 mg Q6H PRN Administration Nausea/Vomiting Testosterone Cypionate 300 mg 12/18/18 20:00 12/18/18 19:51 Depo-Testosterone IM 300 mg We@2000 BRIAN Administration Venlafaxine HCl 150 mg 12/16/18 09:00 12/20/18 09:12 Effexor Xr PO 150 mg QAM BRIAN Administration - Exam General Appearance: NAD, awake alert Eye: PERRL, anicteric sclera ENT: normocephalic atraumatic, no oropharyngeal lesions, moist mucosa Neck: supple, symmetric, no JVD, no thyromegaly, no lymphadenopathy, no carotid bruit Heart: RRR, no murmur, no gallops, no rubs, normal peripheral pulses Respiratory: CTAB, no wheezes, no rales, no ronchi, normal chest expansion, no tachypnea, normal percussion Gastrointestinal: soft, non-tender, non-distended, normal bowel sounds, no palpable masses, no hepatomegaly, no splenomegaly, no bruit Extremities: no cyanosis (he does have an induration in hisright anticubital area slightly warm, but no erythema.) Musculoskeletal: normal tone, normal strength, no muscle wasting Hosp A/P (1) Gastroenteritis Code(s): K52.9 - NONINFECTIVE GASTROENTERITIS AND COLITIS, UNSPECIFIED Status : Acute (2) Nausea & vomiting Code(s): R11.2 - NAUSEA WITH VOMITING, UNSPECIFIED Status: Acute (3) TYRESE (acute kidney injury) Code(s): N17.9 - ACUTE KIDNEY FAILURE, UNSPECIFIED Status: Acute (4) Depression Code(s): F32.9 - MAJOR DEPRESSIVE DISORDER, SINGLE EPISODE, UNSPECIFIED Status : Chronic - Plan plan to continue with Cipro and continue with Flagyl, also Morphine for abdominal pain, phenergan for nausea ---I will continue imodium since there is no blood in the stools and his WBC normalized. venous doppler of UE showed superficial thrombosis, patient wanted to stay overnight and did not feel comfortable to be discharged home. advised warm compress and elevation of the arm above heart level. advised that a daily baby ASA would help. His labs show much improvement ---will stop drawing labs on him. tolerating GI soft--will stop his fluids. will continue depression meds.
[2018-12-21] MEDS: Morphine 2 MG/ML SYRINGE SLOW IVP PRN ×3 (05:09→13:31)
[2018-12-21] MEDS: metroNIDAZOLE 500 MG in Premix Bag 1 BAG IVPB SCH ×2 (05:09→12:14)
[2018-12-21] MEDS: Acetaminophen 325 MG TAB PO PRN (06:44)
[2018-12-21 07:35] VITALS: TEMP 98.5
[2018-12-21] MEDS: Lisinopril 20 MG TAB PO SCH (08:55)
[2018-12-21] MEDS: Venlafaxine HCl XR 150 MG CAP PO SCH (08:55)
[2018-12-21] MEDS: Bupropion 150 MG XL TAB PO SCH (08:55)
[2018-12-21 12:40] VITALS: BP 128/78
--- NOTE | 2018-12-21 14:54 | PDOC.HOSPP ---
- Subjective Encounter Date: 12/21/18 Encounter Time: 14:50 Subjective: Mr. Hutchinson was seen today in follow-up of acute kidney injury. He notes pain in his right arm, and swelling, otherwise no problems. - Objective Vital Signs & Weight: Vital Signs (12 hours) Temp Pulse Resp BP BP Pulse Ox 12/21/18 11:38 63 14 128/78 97 12/21/18 08:55 125/74 95 12/21/18 07:20 98.5 F 66 13 125/74 95 12/21/18 04:51 98.6 F 65 16 125/73 95 Weight Admit Weight 190 lb Weight 190 lb 2 oz I&O: 12/20/18 12/21/18 12/22/18 06:59 06:59 06:59 Intake Total 1700 900 Balance 1700 900 Result Diagrams: 12/19/18 04:24 12/19/18 04:24 Hospitalist ROS - Medication Medications: Active Medications Generic Name Dose Route Start Last Admin Trade Name Freq PRN Reason Stop Dose Admin Acetaminophen 650 mg 12/16/18 03:47 12/21/18 06:44 Tylenol PO 650 mg Q4H PRN Administration Headache/Fever/Mild Pain (1-3) Bupropion HCl 150 mg 12/16/18 09:00 12/21/18 08:55 Wellbutrin Xl PO 150 mg QAM BRIAN Administration Dicyclomine HCl 10 mg 12/16/18 06:49 12/19/18 20:20 Bentyl PO 10 mg QID PRN Administration Abdominal Distention Metronidazole 500 mg/ Device 100 mls @ 100 mls/hr 12/16/18 06:00 12/21/18 12: 14 IVPB 100 mls Q6HR BRIAN Administration Ciprofloxacin/Dextrose 400 mg/ 200 mls @ 200 mls/hr 12/16/18 13:00 12/21/18 12:14 Device IVPB 200 mls 0100,1300 BRIAN Administration Lisinopril 20 mg 12/18/18 09:00 12/21/18 08:55 Zestril PO 20 mg DAILY BRIAN Administration Morphine Sulfate 2 mg 12/16/18 11:14 12/21/18 13:31 Morphine SLOW IVP 2 mg Q4H PRN Administration Moderate to Severe Pain (6-10) Ondansetron HCl 4 mg 12/16/18 03:47 12/19/18 20:20 Zofran Odt PO 4 mg Q6H PRN Administration Nausea/Vomiting Ondansetron HCl 4 mg 12/16/18 03:47 12/16/18 17:19 Zofran IVP 4 mg Q6H PRN Administration Nausea/Vomiting Sodium Chloride 10 ml 12/18/18 18:53 12/20/18 23:52 Flush - Normal Saline IVF 10 ml PRN PRN Administration Saline Flush Testosterone Cypionate 300 mg 12/18/18 20:00 12/18/18 19:51 Depo-Testosterone IM 300 mg We@2000 BRIAN Administration Venlafaxine HCl 150 mg 12/16/18 09:00 12/21/18 08:55 Effexor Xr PO 150 mg QAM BRIAN Administration - Exam Eye: PERRL Heart: RRR, no murmur, no gallops, no rubs, normal peripheral pulses Respiratory: CTAB, no wheezes, no rales, no ronchi, normal chest expansion, no tachypnea, normal percussion Gastrointestinal: soft, non-tender, non-distended, normal bowel sounds, no palpable masses, no hepatomegaly, no splenomegaly, no bruit Extremities: no cyanosis, no clubbing, 1+ LE edema (+ edema in the right upper extremity, + warmth, good radial and ulnar pulses bilaterally) Hosp A/P (1) TYRESE (acute kidney injury) Code(s): N17.9 - ACUTE KIDNEY FAILURE, UNSPECIFIED Status: Acute (2) Superficial thrombophlebitis of right upper extremity Code(s): I80.8 - PHLEBITIS AND THROMBOPHLEBITIS OF OTHER SITES Status: Acute (3) Gastroenteritis Code(s): K52.9 - NONINFECTIVE GASTROENTERITIS AND COLITIS, UNSPECIFIED Status : Acute (4) Depression Code(s): F32.9 - MAJOR DEPRESSIVE DISORDER, SINGLE EPISODE, UNSPECIFIED Status : Chronic - Plan * Acute kidney Injury- resolved * Superficial thrombophlebitits- continue conservative measures * Stable for discharge home.
[2018-12-21] MEDS ORDERED: Ibuprofen 600 MG TAB PO SCH (15:00)
--- NOTE | 2018-12-21 22:14 | DIS ---
DATE OF ADMISSION: 12/16/2018 DATE OF DISCHARGE: 12/21/2018 PRIMARY CARE PHYSICIAN: Dr. Ponce Velez. DISCHARGE DISPOSITION: Home. PRIMARY DISCHARGE DIAGNOSES: 1. Acute renal failure, resolved. 2. Superficial thrombophlebitis. 3. History of major depression. 4. Anxiety. 5. Hypogonadism. DISCHARGE MEDICATIONS: Include 1. Flagyl 500 mg t.i.d. for 3 days. 2. Cipro 500 mg twice a day for 3 days. 3. Tylenol No. 4 one tablet q.4 hours as needed for pain. 4. Venlafaxine 150 mg daily. 5. Testosterone cypionate 300 mg every seven days. 6. Lisinopril 20 mg daily. 7. Adderall 20 mg t.i.d. 8. Bupropion 150 mg extended release daily. PROCEDURES DONE DURING THIS ADMISSION: The patient had a CT scan of the abdomen and pelvis, which showed decompressed colon. There was some thickening of the terminal ileum and a few scattered diverticula. CODE STATUS: Full code. ALLERGIES: NO KNOWN DRUG ALLERGIES. HOSPITAL COURSE: Mr. Hutchinson is a pleasant 43-year-old gentleman who presented to the emergency room with complaints of nausea and vomiting which lasted pretty much throughout the day. The patient was found to be in acute kidney injury. He was admitted and started on IV fluids as it was felt that the acute renal failure was likely the result of prerenal azotemia. His renal function resolved and went back to baseline and the discharge creatinine was 0.83, and his creatinine had gone as high as 3.84. The patient unfortunately developed superficial thrombophlebitis which is being treated conservatively. He was told to come back to the emergency room should he develop fever or worsening swelling in the arm or evidence of vascular compromise. He also was instructed to avoid anti-inflammatory medications as well and is to follow up with his primary care physician in 1 week. Job ID: [id number]
--- NOTE | 2018-12-24 17:54 | PQF ---
[employer] Mackenzie, BROARUN BRIDGES MD [id number] CLINICAL DOCUMENTATION CLARIFICATION FORM: POST DISCHARGE Addendum to original discharge summary date: ____ Late entry note date: __ DATE: 12/24/18 ATTN: Arun Trevino Please exercise your independent, professional judgment in responding to the clarification form. Clinical indicators are provided on the bottom of this form for your review Can you please further specify if thrombophlebitis is due to post op IV insertion or not? Please check appropriate box(s): [ ] thrombophlebitis is due to post op IV insertion [ ] thrombophlebitis is not due to post op IV insertion [ X ] Other diagnosis (please specify) __Thrombophlebitis is due to an IV but I do not know if it was post -op [ ] Unable to determine In addition, please specify: Present on Admission (POA): [ ] Yes [ X] No [ ] Unable to determine CLINICAL INDICATORS - Vascular Ultrasound 12/20/18 pg.1- " Right upper extremity edema" Vascular Ultrasound 12/20/18 pg.1- "Occlusive thrombus formation within the superficial venous system of the right upper expremity" PN Dr. Moose Putnam 12/20 p.1- "induration in his right ante-cubital area where his IV was" PN Dr. Moose Putnam 12/20 p.5- "venous Doppler showed superficial thrombosis" PN Dr. Moose Putnam 12/20 p.5- "advised that a daily baby ASA would help" PN Dr. Davis 12/21 pg. 4- "superficial thrombophlebitis of right upper extremity" RISK FACTORS TYRESE- H and P pg.2 S/P IV insertion- ER Visit note pg.2 Superficial thrombophlebitis of right upper extremity-PN Dr. Davis 12/21 pg. 4 TREATMENT: Warm compress and elevation of arm above heart level-PN Dr. Moose Putnam 12/20 p.5 Baby Aspirin-PN Dr. Moose Putnam 12/20 p.5 Conservative measure-PN Dr. Davis 12/21 pg. 5 Vascular Ultrasound- 12/20/18 Dr. Hester (This form is maintained as a part of the permanent medical record) 2014 [employer]. All Rights Reserved [email or web address] [not provided] [email or web address]
== END 2018-12-21 16:02 | disposition home or self-care (01) | DRG 683 ==
LOC: ERS 23:46 → SJJU 12-16 02:27
PROVIDERS: ADMIT Internal Medicine; ATTEND Internal Medicine
DX: N17.9 Acute kidney failure, unspecified (principal); T80.1XXA Vascular complications following infusion, transfusion and therapeutic injection, initial encounter; K52.9 Noninfective gastroenteritis and colitis, unspecified; F41.9 Anxiety disorder, unspecified; F32.9 Major depressive disorder, single episode, unspecified; E29.1 Testicular hypofunction; D72.829 Elevated white blood cell count, unspecified; I80.8 Phlebitis and thrombophlebitis of other sites; Z79.899 Other long term (current) drug therapy; Y83.8 Other surgical procedures as the cause of abnormal reaction of the patient, or of later complication, without mention of misadventure at the time of the procedure
CPT/HCPCS: 36415; 74176; 80048; 83630; 85025; 87324; 87427; 87449; 96360; 96361; 96372; J0500; J0696; J0744; J1071; J2270; J2405; J3490; Q0162

== ENCOUNTER 2021-01-23 07:54 | Inpatient (IN) | payer SELFPAY ==
[2021-01-23 09:14] LABS: #Basophils 0.1 thou/uL (0.0-0.2); #Lymphocytes 1.9 thou/uL (1.20-3.40); #Neutrophils 15.4 thou/uL (1.40-6.50); %Basophils 0.8 % (0.0-1.0); %Eosinophils 0.2 % (0.0-10.0); %Lymphocytes 10.3 % (21.0-51.0); %Monocytes 5.2 % (0.0-10.0); %Neutrophils 83.6 % (42.0-75.0); Mean Corpuscular HGB CONC 33.8 g/dL (32.0-36.0); Mean Corpuscular Hemoglobin 30.9 pg (27.0-31.0); Mean Corpuscular Volume 91.6 fL (78.0-98.0); Mean Platelet Volume 7.3 fL (7.4-10.4); Platelet Count 296 thou/uL (130-400); RBC Distribution Width 13.1 % (11.5-14.5); White Blood Cell (WBC) Count 18.4 thou/uL (4.8-10.8)
[2021-01-23] MEDS ORDERED: Ondansetron PF 4 MG/2 ML Vial ONE ×2 (09:20→09:29)
[2021-01-23 09:30] LABS: ALT (SGPT) 28 U/L (8-55); AST (SGOT) 27 U/L (5-34); Albumin 4.8 g/dL (3.5-5.0); Alkaline Phosphatase 79 U/L (40-110); Anion Gap 19 mmol/L (10-20); BUN (Urea Nitrogen) 43 mg/dL (8.9-20.6); Bilirubin, Total 1.3 mg/dL (0.2-1.2); Calc. Creatinine Clearance 0 mL/min (70-130); Calcium 10.4 mg/dL (7.8-10.44); Carbon Dioxide 18 mmol/L (22-29); Chloride 104 mmol/L (98-107); Globulin 3.8 g/dL (2.4-3.5); Glucose 90 mg/dL (70-105); Lipase 30 U/L (8-78); Potassium 4.4 mmol/L (3.5-5.1); Protein, Total 8.6 g/dL (6.0-8.3); Sodium 137 mmol/L (136-145)
[2021-01-23] MEDS ORDERED: Iopamidol-370 76% 500 ML 1 ML ONE (11:07)
[2021-01-23] MEDS ORDERED: Loperamide HCl 2 MG CAP PO PRN (12:07)
[2021-01-23] MEDS ORDERED: Acetaminophen 325 MG TAB PO PRN (12:07)
[2021-01-23] MEDS ORDERED: Ondansetron PF 4 MG/2 ML Vial IVP PRN (12:07)
[2021-01-23] MEDS ORDERED: Ondansetron ODT 4 MG TAB PO PRN (12:07)
[2021-01-23] MEDS ORDERED: Sodium Chloride 0.9% 1,000 ML IV SCH ×2 (12:15→16:45)
[2021-01-23] MEDS ORDERED: Pantoprazole 40 MG VIAL IVP SCH (12:15)
[2021-01-23 12:52] LABS: Hemoglobin 16.9 g/dL (14.0-18.0)
[2021-01-23] MEDS ORDERED: traMADol HCl 50 MG TAB ONE (13:03)
[2021-01-23] MEDS ORDERED: Pantoprazole 40 MG VIAL ONE (13:03)
[2021-01-23 14:02] LABS: Bilirubin Negative (Negative); Blood, Urine Negative (Negative); Clarity Clear (Clear); Glucose, Urine (Dipstick) Normal (Negative); Ketone, Urine Negative (Negative); Leukocyte Negative Leu/uL (Negative); Nitrite Negative (Negative); Protein, Urine (Dipstick) Negative (Neg-Trace); Specific Gravity, Urine 1.035 (1.002-1.036); Urobilinogen Normal mg/dL (Less than 2); pH, Urine 5.5 (5.0-9.0)
[2021-01-23 16:00] LABS: Amphetamine Detected (NotDetected); Barbiturates Screen Not Detected (NotDetected); Benzodiazepine Screen Not Detected (NotDetected); Cocaine Metabolite Screen Not Detected (NotDetected); Methadone Not Detected (NotDetected); Methamphetamine Not Detected (NotDetected); Opiate Screen Not Detected (NotDetected); Oxycodone Screen Not Detected (NotDetected); Phencyclidine (PCP) Not Detected (NotDetected); THC/Cannabinoid Screen Not Detected (NotDetected); Tricyclic Screen Not Detected (NotDetected)
[2021-01-23] MEDS ORDERED: Morphine 4 MG/ML VIAL SLOW IVP SCH (16:45)
[2021-01-23] MEDS: Sodium Chloride 0.9% 1,000 ML IV SCH ×2 (16:52→23:55)
[2021-01-23] MEDS ORDERED: GoLYTELY 4,000 ml Bottle PO SCH (17:00)
[2021-01-23] MEDS: traMADol HCl 50 MG TAB PO PRN (17:43)
[2021-01-23 17:50] VITALS: BMI 29.9
[2021-01-23 20:20] LABS: SARS-CoV-2 PCR by NAA Not Detected (NotDetected)
[2021-01-24 05:34] LABS: Anion Gap 6 mmol/L (10-20); BUN (Urea Nitrogen) 20 mg/dL (8.9-20.6); CK (CPK) 152 U/L (30-200); Calc. Creatinine Clearance 138 mL/min (70-130); Carbon Dioxide 24 mmol/L (22-29); Chloride 108 mmol/L (98-107); Glucose 91 mg/dL (70-105); Potassium 4.2 mmol/L (3.5-5.1); Sodium 134 mmol/L (136-145)
[2021-01-24] MEDS: Sodium Chloride 0.9% 1,000 ML IV SCH ×2 (06:10→11:03)
[2021-01-24 06:34] LABS: #Basophils 0.1 thou/uL (0.0-0.2); #Eosinphils 0.5 thou/uL (0.0-0.7); #Lymphocytes 2.7 thou/uL (1.20-3.40); #Monocytes 0.6 thou/uL (0.11-0.59); #Neutrophils 3.6 thou/uL (1.40-6.50); %Basophils 1.7 % (0.0-1.0); %Eosinophils 6.8 % (0.0-10.0); %Lymphocytes 35.8 % (21.0-51.0); %Monocytes 7.4 % (0.0-10.0); %Neutrophils 48.4 % (42.0-75.0); Mean Corpuscular HGB CONC 33.1 g/dL (32.0-36.0); Mean Corpuscular Hemoglobin 31.2 pg (27.0-31.0); Mean Corpuscular Volume 94.3 fL (78.0-98.0); Mean Platelet Volume 6.9 fL (7.4-10.4); Platelet Count 216 thou/uL (130-400); Red Blood Cell (RBC) Count 4.48 mill/uL (4.70-6.10); White Blood Cell (WBC) Count 7.5 thou/uL (4.8-10.8)
[2021-01-24] MEDS: traMADol HCl 50 MG TAB PO PRN ×3 (07:51→22:36)
[2021-01-24] MEDS: Pantoprazole 40 MG VIAL IVP SCH (08:04)
[2021-01-24] MEDS ORDERED: FLU VACC QS2021-22(6MOS UP)/PF 60 MCG/0.5 ML SYRINGE IM ONE (09:00)
[2021-01-24] MEDS ORDERED: Sodium Chloride 0.9% 1,000 ML IV SCH (10:27)
[2021-01-24] MEDS: Morphine 4 MG/ML VIAL SLOW IVP PRN ×3 (10:56→22:38)
[2021-01-24] MEDS ORDERED: Iopamidol-370 76% 500 ML 1 ML ONE (11:30)
[2021-01-24] MEDS ORDERED: hydrALAZINE 20 MG/ML VIAL SLOW IVP SCH (19:45)
[2021-01-25] MEDS ORDERED: diphenhydrAMINE 25 MG CAP PO SCH (00:24)
[2021-01-25] MEDS ORDERED: Sodium Chloride 0.65% Nasal 44 ML BOT EA NARE PRN (07:12)
[2021-01-25] MEDS ORDERED: Hydrocerin (Eucerin) Cream 120 gm Jar TOP PRN (07:12)
[2021-01-25] MEDS ORDERED: hydrALAZINE 20 MG/ML VIAL SLOW IVP PRN (07:12)
[2021-01-25] MEDS ORDERED: HYDROcodone/Acetaminophen 5/325 mg Tablet PO PRN (07:12)
[2021-01-25] MEDS ORDERED: GUAIFENESIN SF SOLN 200 MG/10 ML UDCUP PO PRN (07:12)
[2021-01-25] MEDS ORDERED: Cepastat Lozenges 1 LOZ PO PRN (07:12)
[2021-01-25] MEDS ORDERED: Benzonatate 100 MG CAP PO PRN (07:12)
[2021-01-25] MEDS ORDERED: Artificial Tear Sol 15 ML BOT EA EYE PRN (07:12)
[2021-01-25] MEDS ORDERED: Zolpidem Tartrate 5 MG TAB PO PRN (07:12)
[2021-01-25] MEDS ORDERED: Calcium Carbonate 500 MG ChewTAB PO PRN (07:12)
[2021-01-25] MEDS ORDERED: diphenhydrAMINE 25 MG CAP PO PRN (07:12)
[2021-01-25] MEDS: Pantoprazole 40 MG VIAL IVP SCH (08:21)
[2021-01-25] MEDS ORDERED: Fleet Enema 133 ML BOT FS SCH (14:15)
[2021-01-25] MEDS ORDERED: Ketamine 50 MG/ML (10ML VIAL) ONE (15:10)
[2021-01-25] MEDS ORDERED: Fentanyl 100 MCG/2 ML VIAL ONE (15:10)
[2021-01-25] MEDS ORDERED: Lidocaine 1% PF 5 ML VIAL ONE (15:19)
[2021-01-25] MEDS ORDERED: PROPOFOL 200 MG/20 ML VIAL ONE (15:19)
[2021-01-25] MEDS ORDERED: Promethazine HCl 25 MG/ML VIAL IVPB PRN (16:07)
[2021-01-25] MEDS ORDERED: PACU-Morphine 4MG/ML VIAL SLOW IVP PRN (16:07)
[2021-01-25] MEDS ORDERED: Ondansetron HCl/PF 4 MG/2 ML Vial IVP PRN (16:07)
[2021-01-25] MEDS ORDERED: Promethazine HCl 25 MG/ML VIAL IM PRN (16:07)
[2021-01-26 06:53] LABS: #Basophils 0.1 thou/uL (0.0-0.2); #Eosinphils 0.2 thou/uL (0.0-0.7); #Lymphocytes 2.1 thou/uL (1.20-3.40); #Monocytes 0.6 thou/uL (0.11-0.59); #Neutrophils 4.4 thou/uL (1.40-6.50); %Basophils 1.1 % (0.0-1.0); %Eosinophils 3.4 % (0.0-10.0); %Lymphocytes 28.2 % (21.0-51.0); %Monocytes 7.6 % (0.0-10.0); %Neutrophils 59.7 % (42.0-75.0); Hemoglobin 13.9 g/dL (14.0-18.0); Mean Corpuscular HGB CONC 34.4 g/dL (32.0-36.0); Mean Corpuscular Hemoglobin 31.5 pg (27.0-31.0); Mean Corpuscular Volume 91.6 fL (78.0-98.0); Mean Platelet Volume 7.4 fL (7.4-10.4); Platelet Count 228 thou/uL (130-400); RBC Distribution Width 12.2 % (11.5-14.5); Red Blood Cell (RBC) Count 4.41 mill/uL (4.70-6.10); White Blood Cell (WBC) Count 7.3 thou/uL (4.8-10.8)
[2021-01-26 07:00] LABS: Anion Gap 13 mmol/L (10-20); BUN (Urea Nitrogen) 16 mg/dL (8.9-20.6); Calc. Creatinine Clearance 114 mL/min (70-130); Calcium 8.4 mg/dL (7.8-10.44); Carbon Dioxide 25 mmol/L (22-29); Chloride 106 mmol/L (98-107); Glucose 130 mg/dL (70-105); Magnesium 1.9 mg/dL (1.6-2.6); Phosphorus 2.5 mg/dL (2.3-4.7); Potassium 3.8 mmol/L (3.5-5.1); Sodium 140 mmol/L (136-145)
[2021-01-26] MEDS: Pantoprazole 40 MG VIAL IVP SCH (08:04)
[2021-01-26] MEDS ORDERED: Amlodipine 5 MG TAB PO SCH (09:00)
[2021-01-26 11:18] VITALS: BP 140/85; TEMP 98.1
== END 2021-01-26 13:16 | disposition home or self-care (01) | DRG 394 ==
LOC: ERS 07:54 → T4-B 15:10
PROVIDERS: ADMIT Emergency Medicine; ATTEND Internal Medicine
PROC: 0DB78ZX Excision of Stomach, Pylorus, Via Natural or Artificial Opening Endoscopic, Diagnostic (ICD-10-PCS; principal; 2021-01-25)
PROC: 0DBN8ZX Excision of Sigmoid Colon, Via Natural or Artificial Opening Endoscopic, Diagnostic (ICD-10-PCS; 2021-01-25)
DX: K55.9 Vascular disorder of intestine, unspecified (principal); N17.9 Acute kidney failure, unspecified; E87.2 Acidosis; T80.1XXA Vascular complications following infusion, transfusion and therapeutic injection, initial encounter; Z20.822 Contact with and (suspected) exposure to COVID-19; I10 Essential (primary) hypertension; F90.9 Attention-deficit hyperactivity disorder, unspecified type; G47.33 Obstructive sleep apnea (adult) (pediatric); E86.0 Dehydration; N28.1 Cyst of kidney, acquired; F41.9 Anxiety disorder, unspecified; I80.8 Phlebitis and thrombophlebitis of other sites; F32.A Depression, unspecified; E66.9 Obesity, unspecified; K31.9 Disease of stomach and duodenum, unspecified; K64.8 Other hemorrhoids; K64.4 Residual hemorrhoidal skin tags; K57.30 Diverticulosis of large intestine without perforation or abscess without bleeding; Z98.52 Vasectomy status; Z98.890 Other specified postprocedural states; Z79.899 Other long term (current) drug therapy; Z68.30 Body mass index [BMI] 30.0-30.9, adult
CPT/HCPCS: 36415; 71260; 74177; 80048; 80053; 80306; 81003; 82274; 82550; 83630; 83690; 83735; 84100; 84484; 84586; 85025; 86850; 86900; 86901; 87045; 87046; 87081; 87427; 87449; 87798; 88305; 88312; 93005; 94760; 96374; 96375; C9113; J2270; J2405; J3010; J7050; Q9967; U0003; U0005

== ENCOUNTER 2021-05-17 16:30 | Outpatient (CLI) | payer OTHER | END 2021-05-17 16:31 | disposition home or self-care (01) | LOC: SLEEPLAB 16:30 | PROVIDERS: ATTEND Otolaryngology Plastic Surgery within the Head & Neck | DX: G47.33 Obstructive sleep apnea (adult) (pediatric) (principal); G25.81 Restless legs syndrome; R51.9 Headache, unspecified; R53.83 Other fatigue; K21.9 Gastro-esophageal reflux disease without esophagitis; R06.83 Snoring; G47.00 Insomnia, unspecified; F41.9 Anxiety disorder, unspecified | CPT/HCPCS: 95806 ==

== ENCOUNTER 2021-10-26 06:17 | Day surgery (SDC) | payer OTHER ==
[2021-10-25 15:02] VITALS: BMI 32.5
[2021-10-26] MEDS ORDERED: Oxymetazoline HCl 0.05% (30 ML BOT) ONE ×2 (06:45→07:06)
[2021-10-26] MEDS ORDERED: Lidocaine 1% MPF 2 ML VIAL ONE (06:58)
[2021-10-26] MEDS ORDERED: SUGAMMADEX SODIUM 200 MG/2 ML VIAL ONE (07:00)
[2021-10-26] MEDS ORDERED: fentaNYL Citrate/PF 100 MCG/2 ML SYRINGE ONE (07:00)
[2021-10-26] MEDS ORDERED: Rocuronium Bromide 10 MG/ML (10ML VIAL) ONE (07:54)
[2021-10-26] MEDS ORDERED: Labetalol HCl 100 MG/20 ML VIAL ONE (07:54)
[2021-10-26] MEDS ORDERED: PROPOFOL 200 MG/20 ML VIAL ONE (07:54)
[2021-10-26] MEDS ORDERED: Lidocaine 1% PF 5 ML VIAL ONE (07:54)
[2021-10-26] MEDS ORDERED: ePHEDrine 50 MG/ML VIAL ONE (07:54)
[2021-10-26] MEDS ORDERED: Ondansetron PF 4 MG/2 ML Vial ONE (07:54)
[2021-10-26] MEDS ORDERED: Dexamethasone 20 MG/5 ML VIAL ONE (07:54)
[2021-10-26] MEDS ORDERED: Midazolam HCl 2 mg/2 ml Vial ONE (08:13)
[2021-10-26] MEDS ORDERED: Famotidine/PF 20 mg/2ml Vial ONE (08:13)
[2021-10-26] MEDS ORDERED: Dexmedetomidine 200 MCG/2 ML VIAL ONE (08:16)
[2021-10-26] MEDS ORDERED: Lidocaine 1% w/Epinephrine 1:100K 20 ML VIAL ONE (08:24)
[2021-10-26] MEDS ORDERED: Bacitracin Zinc Ointment 30 gm TUBE ONE ×2 (08:24→08:57)
[2021-10-26] MEDS ORDERED: Ferric Subsulfate (ASTRINGYN) 8 GM VIAL ONE (08:25)
[2021-10-26] MEDS ORDERED: methylPREDNISolone Acetate 40 mg/ml Vial ONE (08:44)
[2021-10-26] MEDS ORDERED: Fentanyl 100 MCG/2 ML VIAL ONE ×2 (09:27→09:44)
[2021-10-26] MEDS ORDERED: HYDROmorphone 0.5 MG/0.5 ML SYRINGE ONE ×2 (09:58→10:10)
[2021-10-26] MEDS ORDERED: hydrALAZINE 20 MG/ML VIAL ONE (11:00)
[2021-10-26] MEDS ORDERED: Hydrocodone-Acetamin 15 ML UDCUP ONE (11:34)
== END 2021-10-26 12:15 | disposition home or self-care (01) ==
LOC: SDC 06:17
PROVIDERS: ATTEND Otolaryngology Plastic Surgery within the Head & Neck
DX: G47.33 Obstructive sleep apnea (adult) (pediatric) (principal); J34.2 Deviated nasal septum; J34.3 Hypertrophy of nasal turbinates; J34.89 Other specified disorders of nose and nasal sinuses; J35.01 Chronic tonsillitis; K13.79 Other lesions of oral mucosa; J32.9 Chronic sinusitis, unspecified; J30.9 Allergic rhinitis, unspecified; Z79.899 Other long term (current) drug therapy
CPT/HCPCS: 88304; 93005; 93010; J0360; J1100; J1170; J2250; J2405; J2704; J2920; J3010; J3490; S0028